=== PATIENT | female | born 1995 | race Caucasian/White ===

== ENCOUNTER 2019-04-14 19:59 | Emergency (ER) | payer SELFPAY ==
[2019-04-14 21:16] LABS: CHLORIDE,CL 107 mEq/L (98-106); SODIUM,NA 143 mEq/L (136-145)
--- NOTE | 2019-04-14 21:20 | EDM.PDOC ---
ED HPI GENERAL MEDICAL PROBLEM - General Chief Complaint: General Stated Complaint: vertigo Time Seen by Provider: 04/14/19 20:55 Source of Information: Reports: Patient History Limitations: Reports: No Limitations - History of Present Illness INITIAL COMMENTS - FREE TEXT/NARRATIVE: States that for the last several days she has been having difficulty with feeling off balance and "woozy". When at work today she was having difficulty with feeling light headed. She felt that she was drinking enough and she did eat without improvement f her symptoms. She has not fallen or passed out. When she figures out how much she drank today it was possibly 2-24 oz glasses of water and a hydrating drink. She denies any urinary symptoms. Past Medical History - Past Health History Medical/Surgical History: Denies Medical/Surgical History Social & Family History - Tobacco Use Smoking Status *Q: Current Every Day Smoker ED ROS GENERAL - Review of Systems Review Of Systems: See Below Constitutional: Denies: Fever, Chills HEENT: Reports: No Symptoms Respiratory: Reports: No Symptoms Cardiovascular: Reports: No Symptoms GI/Abdominal: Reports: No Symptoms : Reports: No Symptoms Musculoskeletal: Reports: No Symptoms Skin: Reports: No Symptoms Neurological: Reports: Dizziness. Denies: Numbness, Tingling, Change in Speech ED EXAM, GENERAL - Physical Exam Exam: See Below Exam Limited By: No Limitations General Appearance: Alert, WD/WN, No Apparent Distress Ears: Normal External Exam, Normal Canal, Normal TMs Nose: Normal Inspection Throat/Mouth: Normal Inspection, Normal Oropharynx Head: Atraumatic, Normocephalic Neck: Normal Inspection, Supple, Non-Tender Respiratory/Chest: No Respiratory Distress, Lungs Clear, Normal Breath Sounds Cardiovascular: Regular Rate, Rhythm, No Edema GI/Abdominal: Normal Bowel Sounds, Soft, Non-Tender Back Exam: Normal Inspection, Full Range of Motion Extremities: Non-Tender, Normal Capillary Refill Neurological: Alert, Oriented Skin Exam: Warm, Dry, Intact Course - Orders/Labs/Meds Orders: Active Orders 24 hr Category Date Time Status CBC WITH AUTO DIFF [HEME] Stat Lab 04/14/19 20:58 Ordered COMPREHENSIVE METABOLIC PN,CMP [CHEM] Stat Lab 04/14/19 20:58 Ordered HCG QUALITATIVE,URINE [URCHEM] Stat Lab 04/14/19 20:58 Ordered UA W/MICROSCOPIC [URIN] Stat Lab 04/14/19 20:58 Ordered - Re-Assessments/Exams Free Text/Narrative Re-Assessment/Exam: 04/14/19 21:20- Discussed lab results with the pt to include normal blood work, negative urine test, and dehydration on urine test. Departure - Departure Time of Disposition: 21:24 Disposition: Home, Self-Care 01 Condition: Good Clinical Impression: Dehydration - Discharge Information *PRESCRIPTION DRUG MONITORING PROGRAM REVIEWED*: Not Applicable *COPY OF PRESCRIPTION DRUG MONITORING REPORT IN PATIENT WILEY: Not Applicable Instructions: Dehydration, Adult, Wyak-rt-Ygue Additional Instructions: push fluids as much as possible Recheck if symptoms do not improve - Problem List & Annotations (1) Dehydration SNOMED Code(s): 99914496 Code(s): E86.0 - DEHYDRATION Status: Acute Priority: High - Problem List Review Problem List Initiated/Reviewed/Updated: Yes - My Orders Last 24 Hours: My Active Orders 04/14/19 20:58 CBC WITH AUTO DIFF [HEME] Stat COMPREHENSIVE METABOLIC PN,CMP [CHEM] Stat HCG QUALITATIVE,URINE [URCHEM] Stat UA W/MICROSCOPIC [URIN] Stat - Assessment/Plan Last 24 Hours: My Active Orders 04/14/19 20:58 CBC WITH AUTO DIFF [HEME] Stat COMPREHENSIVE METABOLIC PN,CMP [CHEM] Stat HCG QUALITATIVE,URINE [URCHEM] Stat UA W/MICROSCOPIC [URIN] Stat
== END 2019-04-14 21:30 | disposition home or self-care (01) ==
LOC: SUPCPDRO 19:59 → CC.ED 19:59
DX: E86.0 Dehydration (principal); F17.200 Nicotine dependence, unspecified, uncomplicated
CPT/HCPCS: 36415; 80053; 81001; 81025; 85025; 99284

== ENCOUNTER → 2019-12-02 | Day surgery (SDC) | payer OTHER ==
[~2019-12-02] MED LIST: Lactated Ringers 1,000 ML IV SCH; Propofol 200 MG/20 ML SDV IV ONE
--- NOTE | 2019-12-02 17:28 | OR ---
DATE OF OPERATION: 12/02/2019 PREOPERATIVE DIAGNOSIS: COLITIS. POSTOPERATIVE DIAGNOSIS: COLITIS. SURGEON: Pernell Ramon MD PROCEDURE: DIAGNOSTIC COLONOSCOPY WITH BIOPSIES X3. ANESTHESIA: MAC. COMPLICATIONS: None. SPECIMEN: Left-sided biopsies x3 at splenic flexure, sigmoid and rectosigmoid junction. FINDINGS: 1. Full-length colonoscopy. 2. Almost completely resolved left-sided colitis. RECOMMENDATIONS: Followup pending path report. INDICATIONS: The patient has a 2-week history of some ongoing issues with abdominal pain and reflux. CT scan ultimately showed a colitis from the transverse colon to the rectosigmoid junction. She was sent for diagnostic scope. DESCRIPTION OF PROCEDURE: The patient was prepped and draped, placed in the left lateral decubitus position. A lubricated Olympus colonoscope was inserted and easily advanced to the cecum. About the time we got to the cecum, the patient started having ongoing issues with cough. She had a very strong abdominal bruit. It was very hard to keep the ileocecal valve still, and by the time we intubated into the terminal ileum, the patient would either cough or breathe the tube out of it. No gross abnormalities were seen to the terminal ileum and we did not feel safe putting a biopsy forceps in there. The cecum, ascending, and for the most part the transverse colon were completely benign. CT scan showed some involvement of the transverse colon, but was not visually able to see that. What minimal colitis the patient had left was present from approximately the splenic flexure down to the rectosigmoid junction with a couple of areas of very mild erythema and thickening at the splenic flexure to the mid sigmoid. 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 The only real area of active colitis present was in the rectosigmoid junction, about a 5 to 6 cm segment which still had some inflammatory changes. We did do a biopsy of that. The rectal vault was benign. Retroflexion showed no anal lesions. Air was suctioned, scope removed without complication. CRYSTAL/GI /[id number]
== END ==
LOC: CC.SDS 12:13
PROVIDERS: ATTEND Family Medicine
DX: K52.9 Noninfective gastroenteritis and colitis, unspecified (principal); K21.9 Gastro-esophageal reflux disease without esophagitis; F17.210 Nicotine dependence, cigarettes, uncomplicated; Z88.0 Allergy status to penicillin; Z79.3 Long term (current) use of hormonal contraceptives; Z79.899 Other long term (current) drug therapy
CPT/HCPCS: 36415; 45380; 84703; J2704; J7120

== ENCOUNTER 2020-05-15 18:19 | Emergency (ER) | payer OTHER ==
[2020-05-15 18:58] LABS: CHLORIDE,CL 105 mEq/L (98-106); SODIUM,NA 139 mEq/L (136-145)
[2020-05-15] MEDS ORDERED: Sodium Chloride 0.9% 1,000 ML IV ONE (19:10)
--- NOTE | 2020-05-15 19:17 | EDM.PDOC ---
ED HPI GENERAL MEDICAL PROBLEM - General Chief Complaint: Fever Stated Complaint: cough, SOB Time Seen by Provider: 05/15/20 18:38 Source of Information: Reports: Patient History Limitations: Reports: No Limitations - History of Present Illness INITIAL COMMENTS - FREE TEXT/NARRATIVE: Noemí is a 24 yo female who presents to the ED via private vehicle with concerns shortness of breath and not feeling well. States she started getting short of breath and coughing last week. Admits the cough being dry, nonproductive. States it really didn't improve at all since onset and today started getting severe low back and pain into her right side. States she has had increase in urinary frequency as well. Started running a fever today and seems the shortness of breath has worsened. Denies any COVID exposure. No prior history of kidney stones. Lower Abdominal Pain Score (Numeric/FACES): 8 - Related Data Allergies Allergy/AdvReac Type Severity Reaction Status Date / Time amoxicillin Allergy Hives Verified 05/15/20 18:23 Home Meds: Home Meds ARIPiprazole [Abilify] 2 mg PO DAILY 05/15/20 [History] Desogestrel/Ethinyl Estradiol [Apri] 1 tab PO DAILY 05/15/20 [History] Etonogestrel [Nexplanon] 1 each IMPLANT ASDIRECTED 05/15/20 [History] Ibuprofen 1 tab PO TID PRN 05/15/20 [History] Prazosin HCl [Prazosin] 2 mg PO BEDTIME 05/15/20 [History] Past Medical History - Past Health History Medical/Surgical History: Denies Medical/Surgical History HEENT History: Reports: None Cardiovascular History: Reports: None Respiratory History: Reports: None Gastrointestinal History: Reports: None Genitourinary History: Reports: None 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[employer] HISTORY 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: Reports: Endometriosis Musculoskeletal History: Reports: None Neurological History: Reports: None Psychiatric History: Reports: Anxiety, Depression Endocrine/Metabolic History: Reports: Obesity/BMI 30+ - Past Surgical History GI Surgical History: Reports: Colonoscopy Female Surgical History: Reports: Other (See Below) Other Female Surgeries/Procedures: laporoscopic endometrial surgery x 2 Musculoskeletal Surgical History: Reports: Other (See Below) Other Musculoskeletal Surgeries/Procedures:: thumb surgery Social & Family History - Tobacco Use Smoking Status *Q: Current Every Day Smoker Years of Tobacco use: 6 Packs/Tins Daily: 1 - Caffeine Use Caffeine Use: Reports: Energy Drinks - Recreational Drug Use Recreational Drug Use: Yes Recreational Drug Type: Reports: Marijuana/Hashish ED ROS GENERAL - Review of Systems Review Of Systems: See Below Constitutional: Reports: Fever, Chills, Fatigue, Decreased Appetite HEENT: Reports: No Symptoms, Other (denies loss of taste or smell). Denies: Rhinitis, Throat Pain Respiratory: Reports: Shortness of Breath, Cough. Denies: Wheezing, Pleuritic Chest Pain Cardiovascular: Reports: Dyspnea on Exertion. Denies: Chest Pain, Palpitations Endocrine: Denies: High Glucose, Low Glucose, Polydypsia, Polyuria GI/Abdominal: Reports: Diarrhea, Decreased Appetite, Nausea. Denies: Bloody S tool, Hematochezia, Vomiting : Reports: Flank Pain. Denies: Discharge, Dysuria, Irregular Menses (last perioed 2 weeks ago) Musculoskeletal: Reports: Muscle Stiffness (body aches) Skin: Reports: No Symptoms Neurological: Reports: No Symptoms ED EXAM, GENERAL - Physical Exam Exam: See Below Exam Limited By: No Limitations General Appearance: Alert, WD/WN, No Apparent Distress Eye Exam: Bilateral Eye: Normal Inspection Ears: Normal External Exam, Normal Canal, Hearing Grossly Normal, Normal TMs Nose: No Blood, Clear Rhinorrhea Throat/Mouth: Normal Inspection, Normal Lips, Normal Teeth, Normal Gums, Normal Oropharynx, Normal Voice, No Airway Compromise Head: Atraumatic, Normocephalic Neck: Normal Inspection, Supple, Non-Tender. No: Lymphadenopathy (L), Lymphadenopathy (R) Respiratory/Chest: No Respiratory Distress, Lungs Clear, Normal Breath Sounds, No Accessory Muscle Use, Chest Non-Tender. No: Crackles, Rales, Rhonchi, Wheezing, Accessory Muscle Use Cardiovascular: Regular Rate, Rhythm, No Edema, No Murmur Peripheral Pulses: 2+: Posterior Tibial (L), Posterior Tibial (R), Dorsalis Pedis (L), Dorsalis Pedis (R) GI/Abdominal: Normal Bowel Sounds, Soft, No Organomegaly, No Distention, Tender (RLQ) Back Exam: CVA Tenderness (R). No: CVA Tenderness (L) Extremities: Normal Inspection, Non-Tender, No Pedal Edema, Normal Capillary Refill Neurological: Alert, Oriented, Normal Cognition, No Motor/Sensory Deficits Psychiatric: Normal Affect, Normal Mood Skin Exam: Dry, Intact, Normal Color, No Rash, Increased Warmth Course - Vital Signs Last Recorded V/S: Last Vital Signs Temp 102.1 F H 05/15/20 19:33 Pulse 104 H 05/15/20 18:20 Resp 20 05/15/20 18:20 BP 146/70 H 05/15/20 18:20 Pulse Ox 100 05/15/20 18:20 - Orders/Labs/Meds Orders: Active Orders 24 hr Category Date Time Status Abdomen Pelvis wo Cont [CT] Stat Exams 05/15/20 19:37 Taken Abdomen wo Cont [CT] Stat Exams 05/15/20 19:20 Stop Req CTA Chest W WO Contrast [Ang Chest] [CT] Stat Exams 05/15/20 19:11 Taken Labs: Laboratory Tests 05/15/20 05/15/20 05/15/20 Range/Units 18:24 18:35 18:40 WBC 5.6 (5.0-10.0) 10^3/uL RBC 4.87 (4.00-5.50) 10^6/uL Hgb 12.3 (12.0-16.0) g/dL Hct 38.7 (37.0-47.0) % MCV 79.5 L (82.0-94.0) fL MCH 25.3 L (27.0-32.0) pg MCHC 31.8 L (33.0-38.0) g/dL RDW Coeff of Jossy 16.3 H (11.0-15.0) % Plt Count 199 (150-400) 10^3/uL Neut % (Auto) 88.7 H (35-85) % Lymph % (Auto) 7.7 L (10-55) % [place] % (Auto) 3.2 (0-16) % Eos % (Auto) 0.2 (0-5) % Baso % (Auto) 0.2 (0-3) % Neut # (Auto) 4.95 (1.80-7.00) 10^3/uL Lymph # (Auto) 0.43 L (1.00-4.80) 10^3/uL [place] # (Auto) 0.18 (0.00-0.80) 10^3/uL Eos # (Auto) 0.01 (0.00-0.45) 10^3/uL Baso # (Auto) 0.01 10^3/uL D-Dimer, Quantitative (0.00-0.50) Sodium (136-145) mEq/L Potassium (3.5-5.0) mEq/L Chloride (98-106) mEq/L Carbon Dioxide (21-32) mmol/L BUN (7-18) mg/dL Creatinine (0.6-1.0) mg/dL Est Cr Clr Drug Dosing mL/min Estimated GFR (MDRD) (>=60) mL/min Glucose (75-99) mg/dL Calcium (8.4-10.1) mg/dL Total Bilirubin (0.0-1.0) mg/dL AST (15-37) U/L ALT (12-78) U/L Alkaline Phosphatase (46-116) U/L C-Reactive Protein (0.2-0.8) mg/dL Total Protein (6.4-8.2) g/dL Albumin (3.4-5.0) g/dL Urine Color Kyra (YELLOW) Urine Appearance Slightly cloudy (CLEAR) Urine pH 6.5 (4.5-8.0) Ur Specific [place] >= 1.030 H (1.003-1.020) Urine Protein Negative (NEGATIVE) mg/dL Urine Glucose (UA) Negative (NEGATIVE) mg/dL Urine Ketones Negative (NEGATIVE) mg/dL Urine Occult Blood Trace-intact H (NEGATIVE) Urine Nitrite Negative (NEGATIVE) Urine Bilirubin Negative (NEGATIVE) Urine Urobilinogen 1.0 (0.2-1.0) EU/dL Ur Leukocyte Esterase Negative (NEGATIVE) Urine RBC 5-10 H (0-5) /HPF Urine WBC 0-5 (0-5) /HPF Ur Epithelial Cells Moderate H (NOT SEEN) /HPF Urine Bacteria Few H (NOT SEEN) /HPF Urine Mucus Moderate H (NOT SEEN) /HPF Urine HCG, Qual COVID-19 (MARANDA) Negative (NEGATIVE) 05/15/20 05/15/20 05/15/20 Range/Units 18:40 18:40 18:41 WBC (5.0-10.0) 10^3/uL RBC (4.00-5.50) 10^6/uL Hgb (12.0-16.0) g/dL Hct (37.0-47.0) % MCV (82.0-94.0) fL MCH (27.0-32.0) pg MCHC (33.0-38.0) g/dL RDW Coeff of Jossy (11.0-15.0) % Plt Count (150-400) 10^3/uL Neut % (Auto) (35-85) % Lymph % (Auto) (10-55) % [place] % (Auto) (0-16) % Eos % (Auto) (0-5) % Baso % (Auto) (0-3) % Neut # (Auto) (1.80-7.00) 10^3/uL Lymph # (Auto) (1.00-4.80) 10^3/uL [place] # (Auto) (0.00-0.80) 10^3/uL Eos # (Auto) (0.00-0.45) 10^3/uL Baso # (Auto) 10^3/uL D-Dimer, Quantitative 2.35 H (0.00-0.50) Sodium 139 (136-145) mEq/L Potassium 4.0 D (3.5-5.0) mEq/L Chloride 105 (98-106) mEq/L Carbon Dioxide 23 (21-32) mmol/L BUN 8 (7-18) mg/dL Creatinine 0.9 (0.6-1.0) mg/dL Est Cr Clr Drug Dosing 81.11 mL/min Estimated GFR (MDRD) > 60 (>=60) mL/min Glucose 112 H D (75-99) mg/dL Calcium 8.4 (8.4-10.1) mg/dL Total Bilirubin 0.5 (0.0-1.0) mg/dL AST 16 (15-37) U/L ALT 23 (12-78) U/L Alkaline Phosphatase 64 (46-116) U/L C-Reactive Protein 2.9 H (0.2-0.8) mg/dL Total Protein 7.2 (6.4-8.2) g/dL Albumin 3.2 L (3.4-5.0) g/dL Urine Color (YELLOW) Urine Appearance (CLEAR) Urine pH (4.5-8.0) Ur Specific [place] (1.003-1.020) Urine Protein (NEGATIVE) mg/dL Urine Glucose (UA) (NEGATIVE) mg/dL Urine Ketones (NEGATIVE) mg/dL Urine Occult Blood (NEGATIVE) Urine Nitrite (NEGATIVE) Urine Bilirubin (NEGATIVE) Urine Urobilinogen (0.2-1.0) EU/dL Ur Leukocyte Esterase (NEGATIVE) Urine RBC (0-5) /HPF Urine WBC (0-5) /HPF Ur Epithelial Cells (NOT SEEN) /HPF Urine Bacteria (NOT SEEN) /HPF Urine Mucus (NOT SEEN) /HPF Urine HCG, Qual Negative COVID-19 (MARANDA) (NEGATIVE) Meds: Medications Discontinued Medications Generic Name Dose Route Start Last Admin Trade Name Freq PRN Reason Stop Dose Admin Acetaminophen 1,000 mg 05/15/20 19:28 05/15/20 19:33 Tylenol Extra Strength PO 05/15/20 19:29 1,000 mg ONETIME ONE Administration Sodium Chloride 1,000 mls @ 999 mls/hr 05/15/20 19:10 05/15/20 19:19 Normal Saline IV 05/15/20 20:10 999 mls/hr .BOLUS ONE Administration Iopamidol 100 ml 05/15/20 19:41 05/15/20 20:05 [id number] (76%) IVPUSH 05/15/20 19:42 100 ml ONETIME ONE Administration Ketorolac Tromethamine 30 mg 05/15/20 19:28 05/15/20 19:33 Toradol IVPUSH 05/15/20 19:29 30 mg ONETIME ONE Administration - Radiology Interpretation Free Text/Narrative:: CTA chest negative per radiologist at [facility]. CT abdomen/pelvis negative for hydronephrosis, nephrolithiasis. No definitive cause of pain identified. CT Results Date: 05/15/20 CT Results Time: 20:50 - Re-Assessments/Exams Free Text/Narrative Re-Assessment/Exam: D-dimer is high. D/t high risk with obesity, 1ppd smoker and use of control will rule out PE. CT of the abdomen/pelvis to rule out kidney stones. Discussed radiation risk with Noemí, which she verbalized understanding and agreed with imaging tonight. Urine was negative. Urinalysis did show dehydration with 5-10 RBC's. CRP slightly elevated. WBC low end of normal. All other labs are stable. Departure - Departure Time of Disposition: 20:58 Disposition: Home, Self-Care 01 Clinical Impression: Dehydration, Right flank pain Abdominal pain Qualifiers: Abdominal location: lower abdomen, unspecified Qualified Code(s): R10.30 - Lower abdominal pain, unspecified - Discharge Information Instructions: Dehydration, Adult, [id number], Fever, Adult, [id number] Forms: ED Department Discharge Additional Instructions: 1) Toradol 10mg - 1 tablet every 6-8 hours as needed for pain 2) Discussed signs and symptoms to watch for, if any symptoms arise or concerns, advise returning for reevaluation 3) CT scans negative tonight 4) No definitive cause of discomfort, may be associated with endometriosis, as discussed 5) Recommend taking Tylenol for fevers, as directed on bottle. No more than 4000mg in 24 hr period 6) Follow up with primary provider this week for recheck. Sepsis Event Note (ED) - Evaluation Sepsis Screening Result: No Definite Risk - Focused Exam Vital Signs: Vital Signs Temp Temp Pulse Resp BP Pulse Ox 05/15/20 19:33 102.1 F H 05/15/20 18:20 102.1 F H 104 H 20 146/70 H 100 - Problem List & Annotations (1) Dehydration SNOMED Code(s): 59267219 Code(s): E86.0 - DEHYDRATION Status: Acute Priority: High Current Visit: Yes (2) Abdominal pain SNOMED Code(s): 43611096 Code(s): R10.9 - UNSPECIFIED ABDOMINAL PAIN Status: Acute Current Visit: Yes Qualifiers: Abdominal location: lower abdomen, unspecified Qualified Code(s): R10.30 - Lower abdominal pain, unspecified (3) Right flank pain SNOMED Code(s): 016902253 Code(s): R10.9 - UNSPECIFIED ABDOMINAL PAIN Status: Acute Current Visit: Yes - My Orders Last 24 Hours: My Active Orders 05/15/20 19:11 CTA Chest W WO Contrast [Ang Chest] [CT] Stat 05/15/20 19:20 Abdomen wo Cont [CT] Stat 05/15/20 19:37 Abdomen Pelvis wo Cont [CT] Stat - Assessment/Plan Last 24 Hours: My Active Orders 05/15/20 19:11 CTA Chest W WO Contrast [Ang Chest] [CT] Stat 05/15/20 19:20 Abdomen wo Cont [CT] Stat 05/15/20 19:37 Abdomen Pelvis wo Cont [CT] Stat Plan: Noemí was given 1 Liter of normal saline and 30mg of Toradol IV while waiting for CT results. 1000mg of Tylenol given for fever as well. Pain has significantly improved and pt is currently afebrile. She states she is feeling a lot better and ready for discharge. CT results negative for any acute findings. Please see additional instructions. Vital signs stable.
[2020-05-15] MEDS ORDERED: Acetaminophen 500 MG Tab PO ONE (19:28)
[2020-05-15] MEDS ORDERED: Ketorolac 30 MG/ML SDV IVPUSH ONE (19:28)
[2020-05-15] MEDS ORDERED: Iopamidol 755 Mg/ML 100 ML Bottle IVPUSH ONE (19:41)
[2020-05-15] MEDS ORDERED: Take Home: Ketorolac 10 MG Tab, 4 Tab Pack PO ONE (21:03)
== END 2020-05-15 21:05 | disposition home or self-care (01) ==
LOC: CC.ED 18:19
DX: E86.0 Dehydration (principal); R10.31 Right lower quadrant pain; F41.9 Anxiety disorder, unspecified; F32.9 Major depressive disorder, single episode, unspecified; E66.9 Obesity, unspecified; Z68.37 Body mass index [BMI] 37.0-37.9, adult; F17.210 Nicotine dependence, cigarettes, uncomplicated; Z20.828 Contact with and (suspected) exposure to other viral communicable diseases; Z88.1 Allergy status to other antibiotic agents; Z79.899 Other long term (current) drug therapy
CPT/HCPCS: 36415; 71275; 74176; 80053; 81001; 81025; 85025; 85379; 86140; 87804; 96361; 96374; 99285-25; A9270-GY; J1885; J7030; Q9967; U0002

== ENCOUNTER 2021-01-13 18:08 | Emergency (ER) | payer OTHER ==
[2021-01-13] MEDS ORDERED: Acetaminophen/HYDROcodone 325-5 MG Tab ONE (18:11)
--- NOTE | 2021-01-13 18:21 | EDM.PDOC ---
ED HPI GENERAL MEDICAL PROBLEM - General Chief Complaint: Bite:Animal, Insect Stated Complaint: "I got bit" Time Seen by Provider: 01/13/21 18:21 Source of Information: Reports: Patient History Limitations: Reports: No Limitations - History of Present Illness INITIAL COMMENTS - FREE TEXT/NARRATIVE: This patient is a 25 year old female that presents to the ER. [place] when her dog and another were playing, then another dog attacked during play. Patient reports she attempted to get in middle and break it up. She reports her dog bit her right hand. She joan other injuries. Reports law enforcement not contacted. Onset: Today Onset Date: 01/13/21 Duration: Hour(s): (1) Location: Reports: Upper Extremity, Right Front/Back Body Image: 1 - dog bite, puncture x2. Not suturable. 2 - dog bite puncture, not suturable 3 - dog bit puncture, not suturable 4 - abrasion Severity: Moderate Improves with: Reports: None Worsens with: Reports: None Associated Symptoms: Reports: No Other Symptoms - Related Data Allergies Allergy/AdvReac Type Severity Reaction Status Date / Time amoxicillin Allergy Hives Verified 01/13/21 18:19 Home Meds: Home Meds ARIPiprazole [Abilify] 2 mg PO DAILY 05/15/20 [History] Desogestrel/Ethinyl Estradiol [Apri] 1 tab PO DAILY 05/15/20 [History] Etonogestrel [Nexplanon] 1 each IMPLANT ASDIRECTED 05/15/20 [History] Ibuprofen 1 tab PO TID PRN 05/15/20 [History] Prazosin HCl [Prazosin] 2 mg PO BEDTIME 05/15/20 [History] Past Medical History - Past Health History Medical/Surgical History: Denies Medical/Surgical History HEENT History: Reports: None Cardiovascular History: Reports: None Respiratory History: Reports: None Gastrointestinal History: Reports: None Genitourinary History: Reports: None 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: Reports: Endometriosis Musculoskeletal History: Reports: None Neurological History: Reports: None Psychiatric History: Reports: Anxiety, Depression Endocrine/Metabolic History: Reports: Obesity/BMI 30+ - Past Surgical History GI Surgical History: Reports: Colonoscopy Female Surgical History: Reports: Other (See Below) Other Female Surgeries/Procedures: laporoscopic endometrial surgery x 2 Musculoskeletal Surgical History: Reports: Other (See Below) Other Musculoskeletal Surgeries/Procedures:: thumb surgery Social & Family History - Caffeine Use Caffeine Use: Reports: Energy Drinks ED ROS GENERAL - Review of Systems Review Of Systems: See Below Constitutional: Reports: No Symptoms HEENT: Reports: No Symptoms Respiratory: Reports: No Symptoms Cardiovascular: Reports: No Symptoms Endocrine: Reports: No Symptoms GI/Abdominal: Reports: No Symptoms : Reports: No Symptoms Musculoskeletal: Reports: Hand Pain (Right) Skin: Reports: Bruising (Right hand), Wound (Right hand,. left hand) Neurological: Reports: No Symptoms Psychiatric: Reports: No Symptoms Hematologic/Lymphatic: Reports: No Symptoms Immunologic: Reports: No Symptoms ED EXAM, ANIMAL BITE - Physical Exam Exam: See Below Exam Limited By: No Limitations General Appearance: Alert, WD/WN, No Apparent Distress Respiratory/Chest: No Respiratory Distress, Lungs Clear, Normal Breath Sounds, No Accessory Muscle Use Cardiovascular: Normal Peripheral Pulses, Regular Rate, Rhythm, No Edema, No Gallop, No JVD, No Murmur, No Rub Peripheral Pulses: 2+: Radial (L), Radial (R) Extremities: Normal Range of Motion, Normal Capillary Refill, Other (Pain, tenderness, swelling, eccyhmosis right hand generalized. Multiple small puncutre dog bite wounds. ROM intact. Pulses +2, cap refill < 2 sec, sensory/motor function intact. Neurovascular intact. ) Neurological: Alert, Oriented Psychiatric: Normal Affect, Normal Mood Skin Exam: Ecchymosis (Right hand), Other (Pain, tenderness, swelling, eccyhmosis right hand generalized. Multiple small puncutre dog bite wounds. ROM intact. Pulses +2, cap refill < 2 sec, sensory/motor function intact. Vladimir rovascular intact. ) Course - Orders/Labs/Meds Orders: Active Orders 24 hr Category Date Time Status Vaccines to be Administered [RC] PER UNIT ROUTINE Care 01/13/21 18:26 Active Hand Comp Min 3V Rt [CR] Stat Exams 01/13/21 18:22 Taken Meds: Medications Discontinued Medications Generic Name Dose Route Start Last Admin Trade Name Freq PRN Reason Stop Dose Admin Hydrocodone Bitart/Acetaminophen 3 packet 01/13/21 18:25 01/13/21 18:38 Take Home: Acetaminophen/Hydrocod, 2 Tab Pack PO 01/13/21 18:26 3 packet ONETIME ONE Administration Hydrocodone Bitart/Acetaminophen 1 tab 01/13/21 18:25 01/13/21 18:35 Joice 325-5 Mg PO 01/13/21 18:26 1 tab ONETIME ONE Administration Diphtheria/Tetanus/Acell Pertussis 0.5 ml 01/13/21 18:25 01/13/21 18:37 Boostrix IM 01/13/21 18:26 0.5 ml .ONCE ONE Administration Neomycin/Polymyxin/Bacitracin 1 each 01/13/21 18:29 01/13/21 18:36 Triple Antibiotic Oint TOP 01/13/21 18:30 1 each ONETIME ONE Administration Departure - Departure Time of Disposition: 18:30 Disposition: Home, Self-Care 01 Condition: Fair Clinical Impression: Puncture wound Dog bite, hand Qualifiers: Encounter type: initial encounter Laterality: right Qualified Code(s): S61.451A - Open bite of right hand, initial encounter - Discharge Information *PRESCRIPTION DRUG MONITORING PROGRAM REVIEWED*: Not Applicable *COPY OF PRESCRIPTION DRUG MONITORING REPORT IN PATIENT WILEY: Not Applicable Instructions: Animal Bite, Adult, [id number], Puncture Wound, [id number] Forms: ED Department Discharge Additional Instructions: Followup with your primary care provider for a recheck Return to the ER for worsening of condition or any emergent concerns such as fever, redness, drainage, or other concerns Rest Ice Elevate Keep wounds clean by washing twice a day, rinse, dry, apply neosporin. Motrin over the counter for pain and swelling If Motrin is not working or for sever pain may use: Joice 5/325mg 1-2 pills every 4-6 hours as needed for pain #6 take home - My Orders Last 24 Hours: My Active Orders 01/13/21 18:22 Hand Comp Min 3V Rt [CR] Stat 01/13/21 18:26 Vaccines to be Administered [RC] PER UNIT ROUTINE - Assessment/Plan Last 24 Hours: My Active Orders 01/13/21 18:22 Hand Comp Min 3V Rt [CR] Stat 01/13/21 18:26 Vaccines to be Administered [RC] PER UNIT ROUTINE Plan: PLEASE SEE RN NOTE FOR PFSH
[2021-01-13] MEDS ORDERED: Take Home: Acetaminophen/HYDROcodone 325-5 MG, 2 Tab Pack PO ONE (18:25)
[2021-01-13] MEDS ORDERED: Acetaminophen/HYDROcodone 325-5 MG Tab PO ONE (18:25)
[2021-01-13] MEDS ORDERED: Diphtheria,Pertussis(Acell),Tetanus Vaccine 0.5 ML Syringe IM ONE (18:25)
[2021-01-13] MEDS ORDERED: Bacitracin/Neomycin/Polymyxin B Oint 0.9 GM U/D Packet TOP ONE (18:29)
== END 2021-01-13 18:50 | disposition home or self-care (01) ==
LOC: CC.ED 18:08
DX: S61.451A Open bite of right hand, initial encounter (principal); E66.9 Obesity, unspecified; Z23 Encounter for immunization; Z88.0 Allergy status to penicillin; Z79.899 Other long term (current) drug therapy; W54.0XXA Bitten by dog, initial encounter
CPT/HCPCS: 73130-RT; 90471; 90715; 99283-25; A9270-GY

== ENCOUNTER 2021-07-10 01:01 | Emergency (ER) | payer OTHER ==
--- NOTE | 2021-07-10 01:40 | EDM.PDOC ---
ED HPI GENERAL MEDICAL PROBLEM - General Chief Complaint: General Stated Complaint: SI Time Seen by Provider: 07/10/21 01:20 Source of Information: Reports: Patient History Limitations: Reports: No Limitations - History of Present Illness INITIAL COMMENTS - FREE TEXT/NARRATIVE: Noemí is a 25 year old female who presents to the ER due to suicidal ideation/attempt. She states she has had issues with anxiety and depression now since she was a teenager. Has been on many medications since that time. Stopped all her meds over a year ago when moved to [place] as she didn't feel they were helping but felt were actually making her symptoms worse and she had developed twitching from them. Used to see Opal Posadas for her anxiety and depression but has not been seen now for over a year. Relates was feeling very sad earlier this evening and sliced her left wrist with a razor. Boyfriend was worried about her and called 911 although she states he is a trigger for her depression. She admits to using alcohol and marijuana earlier in the night. Did "want to just end my life and be done as it is a constant struggle for me". 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 Has not been missing any days at work. Is supposed to leave for [place] later this am to attend her brother's wedding. Patient also concerned that she could be , admits has endometriosis so has ongoing cramping at times but is 7 days late for her menstrual cycle. Onset: Today Duration: Hour(s):, Constant Location: Reports: Upper Extremity, Left, Generalized Quality: Reports: Ache, Burning Severity: Mild Associated Symptoms: Denies: Confusion, Chest Pain, Fever/Chills, Headaches, Malaise, Nausea/Vomiting, Shortness of Breath, Syncope, Weakness hips Pain Score (Numeric/FACES): 4 - Related Data Allergies Allergy/AdvReac Type Severity Reaction Status Date / Time amoxicillin Allergy Hives Verified 07/10/21 01:13 Home Meds: Home Meds . 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 Musculoskeletal History: Reports: None Neurological History: Reports: None Psychiatric History: Reports: Anxiety, Depression Endocrine/Metabolic History: Reports: Obesity/BMI 30+ - Past Surgical History GI Surgical History: Reports: Colonoscopy Female Surgical History: Reports: Other (See Below) Other Female Surgeries/Procedures: laporoscopic endometrial surgery x 2 Musculoskeletal Surgical History: Reports: Other (See Below) Other Musculoskeletal Surgeries/Procedures:: thumb surgery Social & Family History - Caffeine Use Caffeine Use: Reports: Energy Drinks - Alcohol Use Alcohol Use History: Yes - Recreational Drug Use Recreational Drug Type: Reports: Marijuana/Hashish ED ROS GENERAL - Review of Systems Review Of Systems: See Below Constitutional: Denies: Fever, Chills, Malaise, Weakness, Fatigue, Decreased Appetite HEENT: Denies: Ear Pain, Rhinitis, Sinus Problem, Throat Pain Respiratory: Denies: Shortness of Breath, Cough Cardiovascular: Denies: Chest Pain, Edema, Lightheadedness Endocrine: Denies: Fatigue GI/Abdominal: Denies: Abdominal Pain, Black Stool, Bloody Stool, Nausea, Vomiting : Reports: No Symptoms Musculoskeletal: Reports: No Symptoms Skin: Reports: Wound Neurological: Denies: Confusion Psychiatric: Reports: Suicidal Ideation ED EXAM, GENERAL - Physical Exam Exam: See Below Exam Limited By: No Limitations General Appearance: Alert, WD/WN, No Apparent Distress Ears: Normal External Exam, Normal TMs Nose: Normal Inspection, Normal Mucosa, No Blood Throat/Mouth: Normal Inspection, Normal Oropharynx Head: Normocephalic Neck: Normal Inspection, Supple, Non-Tender Respiratory/Chest: No Respiratory Distress, Lungs Clear, Normal Breath Sounds Cardiovascular: Regular Rate, Rhythm GI/Abdominal: Normal Bowel Sounds, Soft, Non-Tender Extremities: Normal Inspection, No Pedal Edema Neurological: Alert, Oriented Psychiatric: Tearful Skin Exam: Wound/Incision (superficial 7 cm cut to left arm. Steri strips applied to area per nurse) Course - Vital Signs Last Recorded V/S: Last Vital Signs Temp 98 F 07/10/21 01:41 Pulse 84 07/10/21 01:41 Resp 16 07/10/21 01:41 BP 112/67 07/10/21 01:41 Pulse Ox 95 07/10/21 01:41 - Orders/Labs/Meds Labs: Laboratory Tests 07/10/21 07/10/21 07/10/21 Range/Units 01:25 01:25 01:30 WBC (4.0-11.0) 10^3/uL RBC (4.00-5.50) x10^6/uL Hgb (12.0-16.0) g/dL Hct (37.0-47.0) % MCV (83.0-97.0) fL MCH (27.0-32.0) pg MCHC (32.0-36.0) g/dL RDW Coeff of Jossy (11.0-15.0) % Plt Count (150-400) 10^3/uL Immature Gran % (Auto) (0.0-4.9) % Neut % (Auto) (41-71) % Lymph % (Auto) (24-44) % Summit % (Auto) (0-10) % Eos % (Auto) (0-6) % Baso % (Auto) (0-1) % Neut # (Auto) (1.80-8.00) x10^3/uL Lymph # (Auto) (0.60-5.00) 10^3/uL Summit # (Auto) (0.00-1.50) 10^3/uL Eos # (Auto) (0.00-1.50) 10^3/uL Baso # (Auto) (0.00-0.50) 10^3/uL Immature Gran # (Auto) (0.00-0.49) 10^3/uL Sodium (136-145) mEq/L Potassium (3.5-5.0) mEq/L Chloride (98-106) mEq/L Carbon Dioxide (21-32) mmol/L BUN (7-18) mg/dL Creatinine (0.6-1.0) mg/dL Est Cr Clr Drug Dosing mL/min Estimated GFR (MDRD) (>=60) mL/min Glucose (75-99) mg/dL Calcium (8.4-10.1) mg/dL Magnesium (1.8-2.4) mg/dL Total Bilirubin (0.0-1.0) mg/dL AST (15-37) U/L ALT (12-78) U/L Alkaline Phosphatase (46-116) U/L Total Protein (6.4-8.2) g/dL Albumin (3.4-5.0) g/dL Urine Color Light yellow (YELLOW) Urine Appearance Clear (CLEAR) Urine pH 6.0 (4.5-8.0) Ur Specific Left Hand <= 1.005 (1.003-1.020) Urine Protein Negative (NEGATIVE) mg/dL Urine Glucose (UA) Negative (NEGATIVE) mg/dL Urine Ketones Negative (NEGATIVE) mg/dL Urine Occult Blood Negative (NEGATIVE) Urine Nitrite Negative (NEGATIVE) Urine Bilirubin Negative (NEGATIVE) Urine Urobilinogen 0.2 (0.2-1.0) EU/dL Ur Leukocyte Esterase Negative (NEGATIVE) Urine HCG, Qual Negative Urine Opiates Screen Negative (NEGATIVE) Ur Oxycodone Screen Negative (NEGATIVE) Urine Methadone Screen Negative (NEGATIVE) Ur Barbiturates Screen Negative (NEGATIVE) U Tricyclic Antidepress Negative (NEGATIVE) Ur Phencyclidine Scrn Negative (NEGATIVE) Ur Amphetamine Screen Negative (NEGATIVE) U Methamphetamines Scrn Negative (NEGATIVE) Urine MDMA Screen Negative (NEGATIVE) U Benzodiazepines Scrn Negative (NEGATIVE) Urine Cocaine Screen Negative (NEGATIVE) U Marijuana (THC) Screen Positive H (NEGATIVE) Ethyl Alcohol (0-3) mg/dL 07/10/21 07/10/21 Range/Units 01:35 01:35 WBC 8.9 (4.0-11.0) 10^3/uL RBC 5.02 (4.00-5.50) x10^6/uL Hgb 12.7 (12.0-16.0) g/dL Hct 39.4 (37.0-47.0) % MCV 78.5 L (83.0-97.0) fL MCH 25.3 L (27.0-32.0) pg MCHC 32.2 (32.0-36.0) g/dL RDW Coeff of Jossy 14.4 (11.0-15.0) % Plt Count 312 (150-400) 10^3/uL Immature Gran % (Auto) 0.1 (0.0-4.9) % Neut % (Auto) 53.7 (41-71) % Lymph % (Auto) 36.9 (24-44) % Summit % (Auto) 4.3 (0-10) % Eos % (Auto) 4.6 (0-6) % Baso % (Auto) 0.4 (0-1) % Neut # (Auto) 4.77 (1.80-8.00) x10^3/uL Lymph # (Auto) 3.28 (0.60-5.00) 10^3/uL Summit # (Auto) 0.38 (0.00-1.50) 10^3/uL Eos # (Auto) 0.41 (0.00-1.50) 10^3/uL Baso # (Auto) 0.04 (0.00-0.50) 10^3/uL Immature Gran # (Auto) 0.01 (0.00-0.49) 10^3/uL Sodium 144 (136-145) mEq/L Potassium 3.5 (3.5-5.0) mEq/L Chloride 107 H (98-106) mEq/L Carbon Dioxide 22 (21-32) mmol/L BUN 11 (7-18) mg/dL Creatinine 0.7 (0.6-1.0) mg/dL Est Cr Clr Drug Dosing 105.67 mL/min Estimated GFR (MDRD) > 60 (>=60) mL/min Glucose 103 H (75-99) mg/dL Calcium 8.5 (8.4-10.1) mg/dL Magnesium 1.9 (1.8-2.4) mg/dL Total Bilirubin 0.2 (0.0-1.0) mg/dL AST 15 (15-37) U/L ALT 24 (12-78) U/L Alkaline Phosphatase 83 (46-116) U/L Total Protein 7.6 (6.4-8.2) g/dL Albumin 3.4 (3.4-5.0) g/dL Urine Color (YELLOW) Urine Appearance (CLEAR) Urine pH (4.5-8.0) Ur Specific Left Hand (1.003-1.020) Urine Protein (NEGATIVE) mg/dL Urine Glucose (UA) (NEGATIVE) mg/dL Urine Ketones (NEGATIVE) mg/dL Urine Occult Blood (NEGATIVE) Urine Nitrite (NEGATIVE) Urine Bilirubin (NEGATIVE) Urine Urobilinogen (0.2-1.0) EU/dL Ur Leukocyte Esterase (NEGATIVE) Urine HCG, Qual Urine Opiates Screen (NEGATIVE) Ur Oxycodone Screen (NEGATIVE) Urine Methadone Screen (NEGATIVE) Ur Barbiturates Screen (NEGATIVE) U Tricyclic Antidepress (NEGATIVE) Ur Phencyclidine Scrn (NEGATIVE) Ur Amphetamine Screen (NEGATIVE) U Methamphetamines Scrn (NEGATIVE) Urine MDMA Screen (NEGATIVE) U Benzodiazepines Scrn (NEGATIVE) Urine Cocaine Screen (NEGATIVE) U Marijuana (THC) Screen (NEGATIVE) Ethyl Alcohol 121 H (0-3) mg/dL - Re-Assessments/Exams Free Text/Narrative Re-Assessment/Exam: 07/10/21 0150 Labs are stable. Blood alcohol 121, positive for marijuana. Contacted screener at the [facility]. Speaking now with patient. 07/10/21 02:21 Talked with screener. Does not feel she is any further threat to herself tonight. She has promised to not harm herself. her boyfriend is agreeable to taking her home and being responsible for her care. She has the crisis line number if she starts having any thoughts of self harm. Departure - Departure Time of Disposition: 02:22 Disposition: Home, Self-Care 01 Condition: Fair Clinical Impression: Suicidal ideation, Self-inflicted laceration of left wrist - Discharge Information *PRESCRIPTION DRUG MONITORING PROGRAM REVIEWED*: No *COPY OF PRESCRIPTION DRUG MONITORING REPORT IN PATIENT WILEY: No Instructions: Nonsutured Laceration Care, Self-Harming Behavior Information Referrals: PCP,None [Family Provider] - Forms: ED Department Discharge Additional Instructions: 1. Keep wound clean and dry 2. Call crisis hotline if any further suicidal thoughts Sepsis Event Note (ED) - Evaluation Sepsis Screening Result: No Definite Risk - Focused Exam Vital Signs: Vital Signs Temp Pulse Resp BP Pulse Ox 07/10/21 01:41 98 F 84 16 112/67 95 07/10/21 01:20 98.0 F 84 16 112/67 95
[2021-07-10 01:48] LABS: AMPHETAMINES,URINE NEGATIVE (NEGATIVE); BARBITURATES,URINE NEGATIVE (NEGATIVE); BENZODIAZEPINE,URINE NEGATIVE (NEGATIVE); MDMA (ECSTASY), URINE NEGATIVE (NEGATIVE); METHADONE,URINE NEGATIVE (NEGATIVE); METHAMPHETAMINES,URINE NEGATIVE (NEGATIVE); OPIATES,URINE NEGATIVE (NEGATIVE); OXYCODONE,URINE NEGATIVE (NEGATIVE); PHENCYCLIDINE,URINE NEGATIVE (NEGATIVE); TCA,URINE NEGATIVE (NEGATIVE)
[2021-07-10 01:52] LABS: CHLORIDE,CL 107 mEq/L (98-106); SODIUM,NA 144 mEq/L (136-145)
== END 2021-07-10 02:48 | disposition home or self-care (01) ==
LOC: CC.ED 01:20 → SUPCPDRO 01:20 → CC.ED 02:48
DX: S61.512A Laceration without foreign body of left wrist, initial encounter (principal); E66.9 Obesity, unspecified; Z88.0 Allergy status to penicillin; Z68.41 Body mass index [BMI] 40.0-44.9, adult; X78.8XXA Intentional self-harm by other sharp object, initial encounter
CPT/HCPCS: 36415; 80053; 80305-QW; 80307; 81003; 81025; 83735; 85025; 99285

== ENCOUNTER 2025-05-06 10:12 | Emergency (ER) | payer MEDICAID ==
[2025-05-06] MEDS: Acetaminophen 500 MG Tab PO ONE (10:25)
== END 2025-05-06 10:50 | disposition home or self-care (01) ==
LOC: CC.ED 10:12
DX: S01.111A Laceration without foreign body of right eyelid and periocular area, initial encounter (principal); Z88.0 Allergy status to penicillin; Y04.8XXA Assault by other bodily force, initial encounter
CPT/HCPCS: 12011; 99283; A9270-GY